=== PATIENT | female | born 1985 | race Caucasian/White ===

== ENCOUNTER 2018-09-13 05:52 | Emergency (ER) | payer BC ==
[2018-09-13 06:03] VITALS: BP 134/117
[2018-09-13] MEDS ORDERED: Loperamide 2 MG Cap PO STA (06:24)
[2018-09-13] MEDS ORDERED: Ondansetron 4 MG Tab.DIS PO ONE (06:24)
--- NOTE | 2018-09-13 06:27 | EDM.PDOC ---
ED HPI GENERAL MEDICAL PROBLEM - General Chief Complaint: Gastrointestinal Problem Stated Complaint: VOMITING Time Seen by Provider: 09/13/18 06:13 Source of Information: Reports: Patient, Family (), RN Notes Reviewed History Limitations: Reports: No Limitations - History of Present Illness INITIAL COMMENTS - FREE TEXT/NARRATIVE: The patient states that she woke around 02:00 this morning with nausea, vomiting , and watery, non-bloody diarrhea. She denies having any abdominal pain. No recent fever. No recent urinary symptoms. She does not recall eating any bad tasting or spoiled food over the past few days. No similarly ill contacts. No recent antibiotics. No recent travel. No prior similar symptoms. The patient did not take any jeuh-eyc-mxdonsk or home remedies before coming to the ED. The patient does not have a PCP. Her Clipper Machine is Dr. Xin Mcbride. 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: Psychiatric History: Reports: Anxiety, Depression - Past Surgical History Female Surgical History: Reports: Section (x 2) Social & Family History - Tobacco Use Smoking Status *Q: Former Smoker Tobacco Use Within Last Twelve Months: Other (See Below) (Currently vapes) Years of Tobacco use: 18 Packs/Tins Daily: 2 Month/Year Tobacco Last Used: Quit early 2018 - Caffeine Use Caffeine Use: Reports: Coffee - Alcohol Use Alcohol Use History: No - Recreational Drug Use Recreational Drug Use: Yes Drug Use in Last 12 Months: No Recreational Drug Type: Reports: Cocaine (last snorted 2008), Marijuana/Hashish (smoked only a few times), Methamphetamine (last injected 05/03/2017) - Living Situation & Occupation Living situation: Reports: , with Spouse, with Family (Son) Occupation: Employed ([employer]) ED ROS GENERAL - Review of Systems Review Of Systems: ROS reveals no pertinent complaints other than HPI. ED EXAM, GI/ABD - Physical Exam Exam: See Below Exam Limited By: No Limitations General Appearance: Alert, WD/WN, No Apparent Distress Eyes: Bilateral: Normal Appearance, EOMI Ears: Normal External Exam, Hearing Grossly Normal Nose: Normal Inspection Throat/Mouth: Normal Inspection, Normal Lips, Normal Voice, No Airway Compromise Head: Atraumatic, Normocephalic Neck: Normal Inspection, Full Range of Motion Respiratory/Chest: No Respiratory Distress, Lungs Clear, Normal Breath Sounds, No Accessory Muscle Use Cardiovascular: Normal Peripheral Pulses, Regular Rate, Rhythm, No Edema, No Gallop, No JVD, No Murmur, No Rub GI/Abdominal Exam: Normal Bowel Sounds, Soft, No Organomegaly, No Distention, No Abnormal Bruit, No Mass, Other (Along the rectus muscles only) (Female) Exam: Deferred Rectal (Female) Exam: Deferred Back Exam: Normal Inspection, Full Range of Motion, NT Extremities: Normal Inspection, Normal Range of Motion, No Pedal Edema, Normal Capillary Refill Neurological: Alert, Oriented, Normal Cognition, No Motor/Sensory Deficits Psychiatric: Normal Affect Skin Exam: Warm, Dry, Intact, Normal Color, No Rash Course - Vital Signs Last Recorded V/S: Last Vital Signs Temp 36.7 C 09/13/18 05:59 Pulse 101 H 09/13/18 05:59 Resp 16 09/13/18 05:59 BP 134/117 H 09/13/18 05:59 Pulse Ox 99 09/13/18 05:59 Orthostatic Blood Pressure [ 139/67 Standing] Orthostatic Blood Pressure [ 122/82 Sitting] Orthostatic Blood Pressure [ 121/77 Supine] - Orders/Labs/Meds Orders: Active Orders 24 hr Category Date Time Status Orthostatic Vital Signs [RC] STAT Care 09/13/18 06:27 Active Meds: Medications Discontinued Medications Generic Name Dose Route Start Last Admin Trade Name Freq PRN Reason Stop Dose Admin Loperamide HCl 4 mg 09/13/18 06:24 09/13/18 06:33 Imodium PO 09/13/18 06:25 4 mg ONETIME STA Administration Ondansetron HCl 4 mg 09/13/18 06:24 09/13/18 06:34 Zofran Odt PO 09/13/18 06:25 4 mg ONETIME ONE Administration - Re-Assessments/Exams Free Text/Narrative Re-Assessment/Exam: 09/13/18 06:25 The patient has gastroenteritis, but her symptoms have only been present for a few hours, and her physical exam is unremarkable. It is unlikely that she has suffered any significant fluid or electrolyte shifts, and therefore blood work is not necessary, however, I have ordered orthostatics. If the patient is significantly orthostatic, blood work may be of some value. In the meantime, I ordered some oral Zofran and oral loperamide. After about 15- 20 minutes, long enough to have the Zofran take effect, the patient can then start drinking some Gatorade. 09/13/18 06:36 The patient just meets the criterion for orthostasis by a drop in her diastolic blood pressure, but her systolic blood pressure and heart rate remained within normal limits. I think we can avoid having to place an IV and draw blood work, and will continue with the current plan of oral medications and fluid replacement. 09/13/18 07:00 The patient is feeling much better. She is drinking Gatorade and holding it down. I will discharge her home with a prescription for Zofran, and have her take [id number] loperamide, if necessary. I will recommend plenty of fluids and [id number]-[id number] foods today. Departure - Departure Time of Disposition: 07:02 Disposition: Home, Self-Care 01 Condition: Good Clinical Impression: Gastroenteritis - Discharge Information *PRESCRIPTION DRUG MONITORING PROGRAM REVIEWED*: Not Applicable *COPY OF PRESCRIPTION DRUG MONITORING REPORT IN PATIENT ALEXANDER: Not Applicable Referrals: PCP,None [Primary Care Provider] - Forms: ED Department Discharge Additional Instructions: You were seen in the emergency room for nausea, vomiting, and watery diarrhea. You were treated with the anti-nausea medicine Zofran in the anti-diarrheal medicine loperamide (Imodium) in the ER. A prescription for Zofran has been sent to the [facility], located in the [place] [facility]. Dissolve one tablet of Zofran on your tongue up to every 8 hours, as needed for nausea/vomiting. Loperamide is available [id number]. The generic is just as good as the brand name Imodium. You may take 1 tablet after each loose bowel movement, for a total of 8 tablets within a 24-hour period. Stay adequately hydrated. Gatorade or Powerade are best. Avoid juice and milk, as these may worsen your diarrhea. If you are hungry, we recommend a bland diet, such as rice, oatmeal, bananas, or toast. Chicken noodle soup with saltine crackers is excellent, as well. If any other problems, please do not hesitate to return to the ER. - My Orders Last 24 Hours: My Active Orders 09/13/18 06:27 Orthostatic Vital Signs [RC] STAT - Assessment/Plan Last 24 Hours: My Active Orders 09/13/18 06:27 Orthostatic Vital Signs [RC] STAT
== END 2018-09-13 07:18 | disposition home or self-care (01) ==
LOC: JD.ED 05:52
DX: K52.9 Noninfective gastroenteritis and colitis, unspecified (principal); F41.9 Anxiety disorder, unspecified; F32.9 Major depressive disorder, single episode, unspecified; Z79.899 Other long term (current) drug therapy; Z87.891 Personal history of nicotine dependence
CPT/HCPCS: 99283; A9270